=== PATIENT | male | born 1960 | race Caucasian/White ===

== ENCOUNTER → 2018-10-27 | Outpatient (CLI) | payer BC ==
--- NOTE | 2018-10-27 16:38 | KCIC ---
Examination: MRI of the right shoulder without contrast HISTORY: History of right shoulder pain, decreased range of motion COMPARISON: None available TECHNIQUE: Multiplanar, multisequence MR imaging of the right shoulder performed without contrast. FINDINGS: The long head of the biceps tendon within the bicipital groove. The attachment of the long head the biceps tendon to the superior labral anchor grossly appears intact. The attachment of the subscapularis tendon, supraspinatus, infraspinatus tendon grossly appears intact. There is minimal increased signal identified in the undersurface fibers of the subscapularis and supraspinatus tendon likely minimal undersurface fraying of the supraspinatus and infraspinatus tendons. There is minimal bursal sided fraying of the supraspinatus tendon. There is increased signal identified in the superior labrum posterior to the attachment of the biceps tendon. Moderate degenerative changes acromioclavicular joint. The muscle bulk grossly appears unremarkable. The acromion is type II. Fat is present within the rotator interval. IMPRESSION: 1. Minimal bursal sided fraying of the supraspinatus tendon. There is minimal undersurface fraying of the supraspinatus and infraspinatus tendon without full-thickness tear. 2. Mild increased signal identified in the superior labrum posterior to the attachment of the biceps tendon, possibly tear. MR arthrogram of useful for further evaluation. 3. Moderate degenerative changes acromioclavicular joint. Correlate for impingement. Electronically signed by: Martell Manzano MD (10/27/2018 4:36 PM) [id number]
== END | disposition home or self-care (01) ==
LOC: KCIC MRI 14:43
PROVIDERS: ATTEND Registered Nurse
DX: M19.011 Primary osteoarthritis, right shoulder (principal)
CPT/HCPCS: 73221